=== PATIENT | male | born 1975 ===

== ENCOUNTER 2021-12-09 14:54 | Emergency (ER) | payer OTHER ==
[~2021-12-09] VITALS: Ht 175.3 cm; Wt 90.7 kg
== END 2021-12-09 17:18 | disposition home or self-care (01) ==
LOC: ER 14:54
DX: S01.511A Laceration without foreign body of lip, initial encounter (principal); Y04.0XXA Assault by unarmed brawl or fight, initial encounter; Y93.9 Activity, unspecified; Y92.9 Unspecified place or not applicable; Y99.9 Unspecified external cause status

== ENCOUNTER → 2021-12-09 | Emergency (ER) | payer OTHER ==
[~2021-12-09] VITALS: Ht 175.3 cm; Wt 90.7 kg
== END | disposition left against medical advice (07) ==
LOC: ER 04:52
DX: S01.511A Laceration without foreign body of lip, initial encounter (principal); Y04.0XXA Assault by unarmed brawl or fight, initial encounter; Y93.9 Activity, unspecified; Y92.9 Unspecified place or not applicable